=== PATIENT | male | born 2000 | race Two or more races ===

== ENCOUNTER 2022-08-14 17:06 | Emergency (ER) | payer OTHER ==
[~2022-08-14] VITALS: Ht 180.3 cm; Wt 60.3 kg
[2022-08-14] MEDS ORDERED: AZITHROMYCIN250 MG PO (18:52)
[2022-08-14] MEDS ORDERED: ORAPRED ODT30 MG PO (18:52)
[2022-08-15] MEDS ORDERED: TUSSI PRES-B L480 ML PO (14:00)
[2022-08-15] MEDS ORDERED: PROAIR HFA8.5 GM IH (14:00)
== END 2022-08-14 19:05 | disposition home or self-care (01) ==
LOC: ER 17:06 → EMR PED 17:06
DX: J11.1 Influenza due to unidentified influenza virus with other respiratory manifestations (principal); Z20.822 Contact with and (suspected) exposure to COVID-19

== ENCOUNTER 2022-08-15 11:44 | Emergency (ER) | payer OTHER ==
[~2022-08-15] VITALS: Ht 180.3 cm; Wt 60.3 kg
[~2022-08-15 11:44] MED LIST: AZITHROMYCIN250 MG PO; ORAPRED ODT30 MG PO
[2022-08-15] MEDS ORDERED: TUSSI PRES-B L480 ML PO (14:00)
[2022-08-15] MEDS ORDERED: PROAIR HFA8.5 GM IH (14:00)
== END 2022-08-15 14:58 | disposition home or self-care (01) ==
LOC: EMR PED 11:44
DX: U07.1 COVID-19 (principal)